=== PATIENT | male | born 1945 | race Caucasian/White ===

== ENCOUNTER 2019-12-30 08:56 | Day surgery (SDC) | payer OTHER ==
[2019-12-24 15:07] VITALS: BMI 22.9
[2019-12-30] MEDS ORDERED: PROPOFOL 20 ML ONE (09:23)
[2019-12-30 10:36] VITALS: TEMP 98
[2019-12-30 11:06] VITALS: BP 141/63; PULSE 48
== END 2019-12-30 11:15 | disposition home or self-care (01) ==
LOC: FASU-ENDO 08:56
PROVIDERS: ATTEND Internal Medicine Gastroenterology
PROC: 0DJD8ZZ Inspection of Lower Intestinal Tract, Via Natural or Artificial Opening Endoscopic (ICD-10-PCS; principal; 2019-12-30 09:33)
DX: Z12.11 Encounter for screening for malignant neoplasm of colon (principal); K62.5 Hemorrhage of anus and rectum; K64.8 Other hemorrhoids